=== PATIENT | female | born 2000 | race Caucasian/White ===

== ENCOUNTER 2022-11-09 19:12 | Emergency (ER) | payer SELFPAY ==
[2022-11-09 19:24] VITALS: BP 105/65
[2022-11-09] MEDS ORDERED: METFORMIN HCL500 M1 PO (19:25)
[2022-11-09] MEDS ORDERED: NOVOLO1 SC (19:26)
[2022-11-09] MEDS ORDERED: LANTUS100 UNIT SC (19:26)
[2022-11-09 19:30] VITALS: BP 102/66
[2022-11-09 19:56] LABS: BASO% 0.4 % (0-3); EOS% 0.8 % (0-8); HEMATOCRIT 28.9 % (37.0-47.0); HEMOGLOBIN 8.1 g/dl (12.0-16.0); IMMATURE GRANULOCYTES 0.2 % (0.0-5.0); LYMPH% 39.3 % (15-41); MEAN CELL VOLUME 71.4 fL CALC (80.0-100.0); MONO% 4.8 % (2-13); NEUT# 6.68 thou/uL (2.00-7.15); NEUT% 54.5 % (42-76); RED BLOOD COUNT 4.05 mill/uL (4.20-5.60); RED CELL DISTRI WIDTH 17.1 % (11.5-15.5)
[2022-11-09 20:02] LABS: HCG SERUM/URINE (NEG/POS) NEGATIVE (NEGATIVE)
[2022-11-09 20:02] LABS: ALBUMIN 3.9 g/dL (3.2-5.0); ALKALINE PHOSPHATASE 87 u/l (38-126); ANION GAP 12 (6-22 (CALC)); BILIRUBIN, TOTAL 0.5 mg/dL (0.02-1.3); BUN 3 mg/dL (7-17); BUN/CREATININE RATIO 6 (12-20 (CALC)); CARBON DIOXIDE 23 mmol/l (22-30); CHLORIDE 105 mmol/l (95-108); CREATININE 0.5 mg/dL (0.5-1.0); GFR FOR AFR.AMER. > 60 ML/MIN (>=60 (CALC)); GFR OTHER RACES > 60 ML/MIN (>=60 (CALC)); POTASSIUM 3.7 mmol/l (3.5-5.1); SGOT/AST 36 u/l (14-36); SODIUM 137 mmol/l (137-146); TOTAL PROTEIN 7.4 g/dL (6.3-8.2)
[2022-11-09] MEDS ORDERED: TORADOL PO (21:03)
[2022-11-09] MEDS ORDERED: CHROMAGEN1 CAP PO (21:03)
[2022-11-09 21:10] VITALS: BP 102/66
== END 2022-11-09 21:20 | disposition home or self-care (01) | DRG 153 ==
LOC: ED 19:12
PROVIDERS: Family Medicine
DX: J06.9 Acute upper respiratory infection, unspecified (principal); R07.89 Other chest pain; E11.9 Type 2 diabetes mellitus without complications; D64.9 Anemia, unspecified; Z79.4 Long term (current) use of insulin; Z20.822 Contact with and (suspected) exposure to COVID-19